=== PATIENT | female | born 1960 ===

== ENCOUNTER 2024-01-03 15:43 | Emergency (ER) | payer MEDICARE, OTHER ==
[~2024-01-03] VITALS: Ht 160 cm; Wt 75.2 kg
[2024-01-03 15:44] VITALS: BP 156/88; PULSE 81; RESP 16; TEMP 98.3; O2SAT 98
[2024-01-03] MEDS ORDERED: CYCL-1 PO (16:34)
[2024-01-03] MEDS ORDERED: OXYC-145 PO (16:46)
== END 2024-01-03 16:55 | disposition home or self-care (01) ==
LOC: ER 15:44
DX: S46.912A Strain of unspecified muscle, fascia and tendon at shoulder and upper arm level, left arm, initial encounter (principal); X58.XXXA Exposure to other specified factors, initial encounter; Y93.89 Activity, other specified; Y92.89 Other specified places as the place of occurrence of the external cause; Y99.8 Other external cause status
CPT/HCPCS: 73030; 99283